=== PATIENT | male | born 1980 | race Caucasian/White ===

== ENCOUNTER → 2020-04-28 | Outpatient (CLI) | payer BC ==
--- NOTE | 2020-04-28 11:23 | KCIC ---
Examination: MRI of the right elbow without contrast HISTORY: History of right elbow pain COMPARISON: None available TECHNIQUE: Multiplanar, multisequence MR imaging of the right shoulder was performed without contrast FINDINGS: The attachment of the triceps tendon to the olecranon process grossly appears intact. The attachment of the common extensor tendon, common flexor tendon grossly appears intact. The radial collateral lig ament, lateral ulnar collateral ligament and the ulnar collateral ligament appears intact. Small elbo w joint effusion. There is increased T2 signal identified about the distal biceps tendon attachment t o the radius small amount of fluid in the bicipital radial bursa. The muscle bulk grossly appears unr emarkable. Mild increased signal identified at the brachialis tendon attachment likely mild tendinosi s. The ulnar nerve within the cubital tunnel grossly appears unremarkable. IMPRESSION: 1. Increased T2 signal identified about the distal biceps tendon attachment to the radius could be t endinosis with partial tear with small amount of fluid in the bicipital radial bursa likely bursitis. 2. Small elbow joint effusion. 3. Mild tendinosis of the brachialis tendon. Electronically signed by: Hira Jacobsen MD (04/28/2020 11:20 AM) [id number]
== END ==
LOC: KCIC MRI 08:24
PROVIDERS: ATTEND Orthopaedic Surgery
DX: M25.421 Effusion, right elbow (principal); M77.8 Other enthesopathies, not elsewhere classified
CPT/HCPCS: 73221